=== PATIENT | female | born 1995 | race Caucasian/White ===

== ENCOUNTER → 2020-02-24 11:46 | Outpatient (BNVA) | payer OTHER, SELFPAY | PROVIDERS: Visit Provider Nurse Practitioner Family | DX: R06.02 Shortness of breath (principal); J06.9 Acute upper respiratory infection, unspecified; Z11.59 Encounter for screening for other viral diseases | CPT/HCPCS: 87635 ==

== ENCOUNTER 2020-12-28 14:55 | Emergency (ER) | payer MEDICAID, SELFPAY ==
[2020-12-28 15:03] VITALS: BP 108/69; PULSE 80; RESP 18; TEMP 37; O2SAT 97; BMI 24.0
--- NOTE | 2020-12-28 15:08 | ECG_ITS ---
[facility] Test Date: 2020-12-28 Pat Name: Elizabeth Jones Department: Room: Gender: Female Partner Marketing Intern: : 1995 Requested By: Rajani Dupont I Order Number: [id number] Yuri MD: Adams Alcaraz M.D. Measurements Intervals [place] Rate: 64 P: 42 DE: 138 QRS: 87 QRSD: 85 T: 19 QT: 384 QTc: 396 Interpretive Statements SINUS RHYTHM NONSPECIFIC T-WAVE ABNORMALITY No previous ECG available for comparison Electronically Signed On 12-29-2020 0:31:52 CDT by Adams Alcaraz M.D. [id number]
--- NOTE | 2020-12-28 15:09 | XRR_ITS ---
PROCEDURE INFORMATION: Exam: XR Chest Exam date and time: 12/28/2020 3:09 PM Age: 25 years old Clinical indication: Other: Hyperglycemia TECHNIQUE: Imaging protocol: XR of the chest. Views: 2 views. COMPARISON: No relevant prior studies available. FINDINGS: Lungs: There is a triangle shaped density in the medial aspect of the right lung base overlapping the right heart border. This may represent a focus of atelectasis. The lungs are otherwise clear. Pleural spaces: Unremarkable. No pleural effusion. No pneumothorax. Heart/Mediastinum: No cardiomegaly. Mediastinal contours are unremarkable. Bones/joints: Unremarkable. XR/XR chest 2V* 14081 IMPRESSION: 1. There is a triangle shaped density in the medial aspect of the right lung base overlapping the right heart border. This may represent a focus of atelectasis. 2. The lungs are otherwise clear.
[2020-12-28 15:18] LABS: Basophils # 0.1 10^3/uL (0.0-0.1); Basophils % 0.9 %; Eosinophils # 0.2 10^3/uL (0.0-0.8); Hematocrit 42.8 % (37.0-47.0); Hemoglobin 15.9 g/dL (11.5-15.3); Lymphocytes # 2.6 10^3/uL (0.8-4.8); Lymphocytes % 32.8 %; Mean Corpuscular HGB Conc 37.1 g/dL (30.0-36.0); Mean Corpuscular Hemoglobin 33.9 pg (28.0-34.0); Mean Corpuscular Volume 91.3 fL (81-99); Mean Platelet Volume 10.5 fL (7.4-10.4); Monocytes # 0.6 10^3/uL (0.2-0.9); Monocytes % 7.6 %; Neutrophils # 4.54 10^3/uL (1.8-7.7); Neutrophils % 56.5 %; Nucleated Red Blood Cells % 0 %; Platelet Count 235 10^3/cmm (130-400); Red Blood Count 4.69 10^6/uL (4.1-5.3); Red Cell Distribution Width 10.8 % (12.1-15.1)
[2020-12-28 15:21] VITALS: BP 119/78; RESP 18; O2SAT 98
[2020-12-28] MEDS: sodium chloride 0.9% 1,000 ML 999 ML IV (15:25)
[2020-12-28 15:31] LABS: Add Urine Microscopic? NO; Charge for UA Resulting for Rev
[2020-12-28 15:45] LABS: Alanine Aminotransferase 16 U/L (0-33); Albumin Level 4.5 g/dL (3.5-5.2); Alkaline Phosphatase 83 IU/L (35-105); Anion Gap 15.8 (5-19); Aspartate Amino Transferase 10 U/L (0-32); Blood Urea Nitrogen 5 mg/dL (6-20); C Reactive Protein 2.1 mg/L (0.0-4.9); Carbon Dioxide 25 mmol/L (22-29); Chloride 93 mmol/L (98-107); Globulin 2.1 g/dL (1.3-4.6); Glomerular Filtration Rate 192.9 mL/min (90-130); Lipase 17 U/L (13-60); Osmolality Calculated 293 mOsm/kg (285-295); Potassium 3.8 mmol/L (3.5-5.1); Sodium 130 mmol/L (136-145); Total Bilirubin 0.5 mg/dL (0.15-1.2); Total Protein 6.6 g/dL (6.6-8.7)
[2020-12-28 15:50] LABS: Bilirubin Urine Neg (Negative); Blood Urine Neg (Negative); Glucose Urine UA 4+ (Normal); HCG Qualitative Urine. Negative (Negative); Ketones Urine 1+ (Negative); Leukocyte Esterase Urine Negative (Negative); Nitrate Urine Negative (Negative); Protein Urine Neg (Negative); Urine Appearance Clear (CLEAR); Urine Color Straw (Yellow); Urobilinogen Urine Norm (Negative); pH Urine 8 (5-7)
[2020-12-28 15:51] LABS: Sulfosalicylic Acid Urine Negative (Negative)
[2020-12-28 15:55] LABS: Glucose 569 mg/dL (65-115)
--- NOTE | 2020-12-28 16:07 | PC.NURSE ---
fsbs 371 after completion of 1 L fluids
[2020-12-28 16:09] LABS: Glucose Point of Care 371 mg/dL (70-110)
[2020-12-28 16:29] LABS: Estmated Average Glucose 306; Hemoglobin A1C 12.3 % (4.0-6.0)
[2020-12-28 16:35] VITALS: BP 105/72; PULSE 68; RESP 18; O2SAT 97
--- NOTE | 2020-12-28 17:05 | ED_ITS ---
HPI - General Adult General: Chief complaint: General Medical Stated complaint: HYPERGLYCEMIA Time Seen by Provider: 12/28/20 14:56 Source: patient and EMS Mode of arrival: EMS Limitations: no limitations History of Present Illness: HPI narrative: Patient is a 25-year-old female with no significant past medical history other than gestational diabetes about 2 years ago. She presents to the emergency department with a several month (9) history of polyuria, polydipsia and a 40 pound weight loss. She started having dysuria a few days ago and so went to her primary care provider's office to be evaluated for these. When they checked her blood glucose was reading high on their meter and so she was sent to the emergency department to be evaluated. In the ambulance she received 1 L of fluids. She complains of a little bit of dizziness but otherwise no complaints. Onset (ago): month(s) (9) Associated symptoms: Deny chest pain, confusion, cough, diaphoresis, decreased appetite, dyspnea, fevers/chills, headache(s), malaise, nausea, rash, palpitations, seizures, short of breath, syncope, vomiting or weakness Treatments prior to arrival: other (IVF) Review of Systems General: Reports: 10 or more systems reviewed and unremarkable except in HPI and below Const: Denies: malaise or diaphoresis Card: Denies: chest pain, palpitations or syncope Resp: Denies: dyspnea GI: Denies: nausea or vomiting Skin/Breast: Denies: rash Neuro: Denies: headache(s) or confusion [facility] ED Female Reproductive History: Date of last menstrual period: 12/16/20 Physical Exam Const: COMMON NORMALS: no acute distress, average body habitus, patient oriented x3, no limitations, healthy appearing, alert and well nourished HENMT: COMMON NORMALS: normocephalic, atraumatic and moist oral mucous membranes HEAD & SCALP: normocephalic and atraumatic Eye: COMMON NORMALS: Equal, round and reactive pupils present, EOMs intact bilaterally, conjunctivae normal and no scleral icterus CONJUNCTIVA: Yes conjunctivae normal PUPIL: Yes Equal, round and reactive pupils present Neck/C-Spine: COMMON NORMALS: no meningeal signs and no JVD Resp: COMMON NORMALS: normal respiratory effort, No retractions, No use of accessory muscles, clear to auscultation bilaterally and percussion normal AUSCULTATION: clear to auscultation bilaterally PERCUSSION: percussion normal Cardio: COMMON NORMALS: no JVD, regular rate, regular rhythm, S1 normal heart sound present, S2 normal heart sound present, No gallops present (Cardio), No clicks present (Cardio), No murmurs present (Cardio), No rub (Cardio) and Peripheral pulses 2+ throughout RATE: regular rate RHYTHM: regular rhythm HEART SOUNDS: S1 normal heart sound present and S2 normal heart sound present PERIPHERAL PULSES: Peripheral pulses 2+ throughout GI: COMMON NORMALS: Normal to inspection, nondistended, normoactive bowel sounds present, Soft to palpation, non-tender, No hepatosplenomegaly present, no masses and no bruits PALPATION: Yes Soft to palpation and Yes No hepatosplenomegaly present Extremity: COMMON NORMALS: normal to inspection, full ROM, capillary refill normal, no calf tenderness and no pedal edema Neuro: COMMON NORMALS: patient oriented x3 SENSORIUM/ORIENTATION: Yes alert MENINGEAL SIGNS: Yes no meningeal signs Skin: COMMON NORMALS: no rashes or lesions noted, no wounds, turgor normal, no jaundice, no petechiae and no mottling GENERAL SKIN EXAM: no rashes or lesions noted and turgor normal Course Reevaluation(s): Reevaluation #1: Discussed her lab and imaging findings with her. Discussed that she does not have a urinary tract infection. However based on her blood glucose values today and her hemoglobin A1c she is diabetic. Explained that her A1c is high enough that she requires to be on insulin. A dvised her to discuss with her primary care provider so that they can start around the appropriate insulin if they both agree on days. I will however discharge her home on Metformin pending when she sees her primary care provider. She voiced understanding and is in agreement with the plan. Time: 17:06 Vital Signs: Vital signs: Vital Signs Temperature 98.6 F 12/28/20 15:03 Pulse Rate 69 12/28/20 17:15 Respiratory Rate 18 12/28/20 17:15 Blood Pressure 107/70 12/28/20 17:15 Pulse Oximetry 96 12/28/20 17:15 MDM - General Adult MDM Narrative: Medical decision making narrative: 25-year-old female with polyuria, polydipsia, unintentional weight loss. Evaluation in the emergency department shows she has diabetes mellitus and she has no prior diagnosis of this. A1c was significantly elevated and she will need to be on insulin, however I will start Metformin and she will follow up with her primary care provider. Medical Records: Attestation: I reviewed the patient's medical records. Lab Data: Attestation: I reviewed the patient's lab results. Labs: Lab Results 12/28/20 12/28/20 12/28/20 Range/Units 15:00 15:00 15:00 WBC 8.0 (4.0-10.0) 10^3/ uL RBC 4.69 (4.1-5.3) 10^6/u L Hgb 15.9 H (11.5-15.3) g/dL Hct 42.8 (37.0-47.0) % MCV 91.3 (81-99) fL MCH 33.9 (28.0-34.0) pg MCHC 37.1 H (30.0-36.0) g/dL RDW 10.8 L (12.1-15.1) % Plt Count 235 (130-400) 10^3/c mm MPV 10.5 H (7.4-10.4) fL Neut % (Auto) 56.5 % Lymph % (Auto) 32.8 % Gosper % (Auto) 7.6 % Eos % (Auto) 2.0 % Baso % (Auto) 0.9 % Neut # (Auto) 4.54 (1.8-7.7) 10^3/u L Lymph # (Auto) 2.6 (0.8-4.8) 10^3/u L Gosper # (Auto) 0.6 (0.2-0.9) 10^3/u L Eos # (Auto) 0.2 (0.0-0.8) 10^3/u L Baso # (Auto) 0.1 (0.0-0.1) 10^3/u L Nucleated RBC % (a uto) 0 % Nucleated RBCs # 0.0 /100WBC Sodium 130 L (136-145) mmol/L Potassium 3.8 (3.5-5.1) mmol/L Chloride 93 L (98-107) mmol/L Carbon Dioxide 25 (22-29) mmol/L Anion Gap 15.8 (5-19) BUN 5 L (6-20) mg/dL Creatinine 0.4 L (0.5-0.9) mg/dL GFR Calculation 192.9 H (90-130) mL/min Glucose 569 H* (65-115) mg/dL POC Glucose (70-110) mg/dL Estimat Average Gl ucose 306 Hemoglobin A1c 12.3 H (4.0-6.0) % Calculated Osmolal ity 293 (285-295) mOsm/k g Calcium 9.0 (8.5-10.5) mg/dL Total Bilirubin 0.5 (0.15-1.2) mg/dL AST 10 (0-32) U/L ALT 16 (0-33) U/L Alkaline Phosphata se 83 (35-105) IU/L C-Reactive Protein 2.1 (0.0-4.9) mg/L Total Protein 6.6 (6.6-8.7) g/dL Albumin 4.5 (3.5-5.2) g/dL Globulin 2.1 (1.3-4.6) g/dL Lipase 17 (13-60) U/L HCG, Qual (Negative) Urine Color (Yellow) Urine Appearance (CLEAR) Urine pH (5-7) Ur Specific Gravit y (1.005-1.030) Urine Protein (Negative) Urine Glucose (UA) (Normal) Urine Ketones (Negative) Urine Blood (Negative) Urine Nitrate (Negative) Urine Bilirubin (Negative) Prot Sulfosalicyli c Acd (Negative) Urine Urobilinogen (Negative) mg/dL Ur Leukocyte Maricruz ase (Negative) 12/28/20 12/28/20 12/28/20 Range/Units 15:15 15:15 16:06 WBC (4.0-10.0) 10^3/ uL RBC (4.1-5.3) 10^6/u L Hgb (11.5-15.3) g/dL Hct (37.0-47.0) % MCV (81-99) fL MCH (28.0-34.0) pg MCHC (30.0-36.0) g/dL RDW (12.1-15.1) % Plt Count (130-400) 10^3/c mm MPV (7.4-10.4) fL Neut % (Auto) % Lymph % (Auto) % Gosper % (Auto) % Eos % (Auto) % Baso % (Auto) % Neut # (Auto) (1.8-7.7) 10^3/u L Lymph # (Auto) (0.8-4.8) 10^3/u L Gosper # (Auto) (0.2-0.9) 10^3/u L Eos # (Auto) (0.0-0.8) 10^3/u L Baso # (Auto) (0.0-0.1) 10^3/u L Nucleated RBC % (a uto) % Nucleated RBCs # /100WBC Sodium (136-145) mmol/L Potassium (3.5-5.1) mmol/L Chloride (98-107) mmol/L Carbon Dioxide (22-29) mmol/L Anion Gap (5-19) BUN (6-20) mg/dL Creatinine (0.5-0.9) mg/dL GFR Calculation (90-130) mL/min Glucose (65-115) mg/dL POC Glucose 371 H (70-110) mg/dL Estimat Average Gl ucose Hemoglobin A1c (4.0-6.0) % Calculated Osmolal ity (285-295) mOsm/k g Calcium (8.5-10.5) mg/dL Total Bilirubin (0.15-1.2) mg/dL AST (0-32) U/L ALT (0-33) U/L Alkaline Phosphata se (35-105) IU/L C-Reactive Protein (0.0-4.9) mg/L Total Protein (6.6-8.7) g/dL Albumin (3.5-5.2) g/dL Globulin (1.3-4.6) g/dL Lipase (13-60) U/L HCG, Qual Negative (Negative) Urine Color Straw (Yellow) Urine Appearance Clear (CLEAR) Urine pH 8 H (5-7) Ur Specific Gravit y 1.010 (1.005-1.030) Urine Protein Neg (Negative) Urine Glucose (UA) 4+ H (Normal) Urine Ketones 1+ H (Negative) Urine Blood Neg (Negative) Urine Nitrate Negative (Negative) Urine Bilirubin Neg (Negative) Prot Sulfosalicyli c Acd Negative (Negative) Urine Urobilinogen Norm (Negative) mg/dL Ur Leukocyte Maricruz ase Negative (Negative) Imaging Data^: CXR: Attestation: I personally reviewed and interpreted this imaging study as follows: Radiologist's impression: Kyler [id number] [facility] [place]ry[place], [place] [address]ZDxi ReportSigned Patient: Blaze Jones #: [id number]: 1995Acct#:[id number]/Sex: / FADM Date: 12/28/20Loc: ERRoom/Bed:Attending Dr: Ordering Provider/Ordering MD: Rajani Dupont [place] [facility] [place] Service: 12/28/20 Procedure(s): XR chest 2V* 71220 Accession Number(s): [id number] Report Number: [id number] PROCEDURE INFORMATION: Exam: XR Chest Exam date and time: 12/28/2020 3:09 PM Age: 25 years old Clinical indication: Other: Hyperglycemia TECHNIQUE: Imaging protocol: XR of the chest. Views: 2 views. COMPARISON: No relevant prior studies available. FINDINGS: Lungs: There is a triangle shaped density in the medial aspect of the right lung base overlapping the right heart border. This may represent a focus of atelectasis. The lungs are otherwise clear. Pleural spaces: Unremarkable. No pleural effusion. No pneumothorax. Heart/Mediastinum: No cardiomegaly. Mediastinal contours are unremarkable. Bones/joints: Unremarkable. XR/XR chest 2V* [id number] IMPRESSION: 1. There is a triangle shaped density in the medial aspect of the right lung base overlapping the right heart border. This may represent a focus of atelectasis. 2. The lungs are otherwise clear. Dictated By:Salvador Teran MDSigned By:Salvador Teran MDSigned Date/Time:12/28/201618DD/ 161 EKG Data^: EKG 1: Attestation: I personally reviewed and interpreted this EKG as follows: EKG interpretation date: 12/28/20 EKG interpretation time: 15:22 Prior EKG tracings: not available for review Interpretation: Sinus rhythm. Heart rate 64 bpm. Normal axis. No ST changes. Computer generated interpretation: Chest X-Ray 12/28/20 15:09 IMPRESSION: 1. There is a triangle shaped density in the medial aspect of the right lung base overlapping the right heart border. This may represent a focus of atelectasis. 2. The lungs are otherwise clear. Discharge Plan Discharge Patient Disposition: Home Clinical Impression: Diabetes mellitus, new onset Condition: Stable Prescriptions: New metformin 500 mg tablet 500 mg PO BID Qty: 60 RF: 0 Discharge Orders: Discharge ED (Routine); Ordered 12/28/20 Ordered By: Rajani Dupont Discharge Diet: Diabetic Discharge Activity: Resume usual activity Patient Instructions: Diabetes and Diet, Diabetes Mellitus Type 2 in Adults (ED) Activity Restrictions/Additional Instructions: Your lab test today showed that you are diabetic. Your hemoglobin A1c is 12.3% which is very high and at this level you will likely require insulin to bring down your A1c. Discussed with your primary care provider on the next steps and what medications you need to be started on. Meanwhile I will discharge her home with a prescription for Metformin, take 1 tablet twice a day. You need to consume a low calorie/diabetic diet from now on. Return for any new or worsening symptoms. Drink plenty of water to keep well-hydrated. Coding Level of Care Code ED Marine Machinist for Francisco Javier Burgos
[2020-12-28 17:15] VITALS: BP 107/70; PULSE 69; RESP 18; O2SAT 96
== END 2020-12-28 17:20 | disposition home or self-care (01) ==
PROVIDERS: Emergency Provider Family Medicine
DX: E11.9 Type 2 diabetes mellitus without complications (principal)
CPT/HCPCS: 36416; 71046; 80053; 81000; 81003; 81025; 82962; 83036; 83690; 85025; 86140; 93005; 96360; 99284; J7030

== ENCOUNTER → 2021-01-03 08:53 | Outpatient (BNVA) | payer MEDICAID, SELFPAY | PROVIDERS: PCP Nurse Practitioner Family; Visit Provider Nurse Practitioner Family | DX: E11.9 Type 2 diabetes mellitus without complications (principal); R53.83 Other fatigue; E55.9 Vitamin D deficiency, unspecified; Z13.6 Encounter for screening for cardiovascular disorders; H60.90 Unspecified otitis externa, unspecified ear; Z79.899 Other long term (current) drug therapy | CPT/HCPCS: 80061; 82306; 84439; 84443; 84681 ==

== ENCOUNTER → 2021-01-12 00:01 | Outpatient (BNVA) | payer MEDICAID, SELFPAY | PROVIDERS: PCP Nurse Practitioner Family; Visit Provider Nurse Practitioner Family | DX: E11.9 Type 2 diabetes mellitus without complications (principal); L40.9 Psoriasis, unspecified; N39.0 Urinary tract infection, site not specified; H60.551 Acute reactive otitis externa, right ear | CPT/HCPCS: 80053; 81003 ==

== ENCOUNTER → 2021-04-04 08:03 | Outpatient (BNVA) | payer MEDICAID, SELFPAY | PROVIDERS: PCP Nurse Practitioner Family; Referring Provider Nurse Practitioner Family; Visit Provider Internal Medicine | DX: E11.9 Type 2 diabetes mellitus without complications (principal); R53.83 Other fatigue; F17.210 Nicotine dependence, cigarettes, uncomplicated | CPT/HCPCS: 99204 ==

== ENCOUNTER 2021-04-04 09:11 | Outpatient (CLI) | payer MEDICAID, SELFPAY ==
[2021-04-04 09:51] LABS: Estmated Average Glucose 154
== END 2021-04-04 09:12 | disposition home or self-care (01) ==
PROVIDERS: PCP Nurse Practitioner Family; Visit Provider Internal Medicine
DX: E11.9 Type 2 diabetes mellitus without complications (principal)
CPT/HCPCS: 36415; 83036

== ENCOUNTER 2021-04-18 10:12 | Outpatient (CLI) | payer MEDICAID, SELFPAY | END 2021-04-18 10:13 | disposition home or self-care (01) | PROVIDERS: PCP Nurse Practitioner Family; Visit Provider Internal Medicine | DX: E11.9 Type 2 diabetes mellitus without complications (principal) | CPT/HCPCS: 83519; 83525; 86337 ==

== ENCOUNTER → 2021-07-28 08:58 | Outpatient (BNVA) | payer BC, MEDICAID, SELFPAY | PROVIDERS: PCP Nurse Practitioner Family; Visit Provider Internal Medicine | DX: E10.65 Type 1 diabetes mellitus with hyperglycemia (principal); E10.649 Type 1 diabetes mellitus with hypoglycemia without coma; E78.2 Mixed hyperlipidemia; E55.9 Vitamin D deficiency, unspecified; R53.83 Other fatigue; E65 Localized adiposity; Z79.4 Long term (current) use of insulin; F17.210 Nicotine dependence, cigarettes, uncomplicated | CPT/HCPCS: 99214 ==

== ENCOUNTER 2021-07-28 10:43 | Outpatient (CLI) | payer BC, MEDICAID, SELFPAY ==
[2021-07-28 11:28] LABS: Alanine Aminotransferase 10 U/L (0-33); Albumin Level 4.7 g/dL (3.5-5.2); Alkaline Phosphatase 53 IU/L (35-105); Anion Gap 13.3 (5-19); Aspartate Amino Transferase 11 U/L (0-32); Blood Urea Nitrogen 11 mg/dL (6-20); Calcium 9.8 mg/dL (8.5-10.5); Carbon Dioxide 24 mmol/L (22-29); Chloride 105 mmol/L (98-107); Chol HDL Ratio 3.46 mg/dL (0.0-4.40); Cholesterol 128 mg/dL (0-200); Globulin 2.3 g/dL (1.3-4.6); Glomerular Filtration Rate 191.5 mL/min (90-130); Glucose 175 mg/dL (65-115); HDL Cholesterol 37 mg/dL (60-100); LDL Cholesterol Calculated 84 mg/dL (50-129); LDL HDL Ratio 2.27 RATIO (0.00-3.22); Osmolality Calculated 290 mOsm/kg (285-295); Potassium 4.3 mmol/L (3.5-5.1); Sodium 138 mmol/L (136-145); Total Bilirubin 0.5 mg/dL (0.15-1.2); Triglycerides 33 mg/dL (0-150)
[2021-07-28 11:58] LABS: 25 Hydroxy Vitamin D > 100 ng/mL (30-100)
[2021-07-28 12:04] LABS: Estmated Average Glucose 197; Hemoglobin A1C 8.5 % (4.0-6.0)
== END 2021-07-28 10:44 | disposition home or self-care (01) ==
PROVIDERS: PCP Nurse Practitioner Family; Visit Provider Internal Medicine
DX: E10.65 Type 1 diabetes mellitus with hyperglycemia (principal); E78.2 Mixed hyperlipidemia; E55.9 Vitamin D deficiency, unspecified
CPT/HCPCS: 80053; 80061; 82306; 83036

== ENCOUNTER → 2021-09-08 10:07 | Outpatient (BNVA) | payer BC, SELFPAY | PROVIDERS: PCP Nurse Practitioner Family; Visit Provider Internal Medicine | DX: E10.649 Type 1 diabetes mellitus with hypoglycemia without coma (principal); F41.9 Anxiety disorder, unspecified; F32.A Depression, unspecified; E55.9 Vitamin D deficiency, unspecified; R53.83 Other fatigue; E65 Localized adiposity; F90.9 Attention-deficit hyperactivity disorder, unspecified type; F17.210 Nicotine dependence, cigarettes, uncomplicated; Z79.4 Long term (current) use of insulin | CPT/HCPCS: 99214 ==

== ENCOUNTER → 2021-10-21 08:19 | Outpatient (BNVA) | payer BC, SELFPAY | PROVIDERS: PCP Nurse Practitioner Family; Visit Provider Psychiatry & Neurology Psychiatry | DX: F60.3 Borderline personality disorder (principal); F33.2 Major depressive disorder, recurrent severe without psychotic features; F41.1 Generalized anxiety disorder; F12.20 Cannabis dependence, uncomplicated; F10.21 Alcohol dependence, in remission; F17.200 Nicotine dependence, unspecified, uncomplicated | CPT/HCPCS: 99204 ==

== ENCOUNTER → 2022-01-05 08:23 | Outpatient (BNVA) | payer BC, SELFPAY | PROVIDERS: PCP Nurse Practitioner Family; Visit Provider Nurse Practitioner | DX: Z20.822 Contact with and (suspected) exposure to COVID-19 (principal) | CPT/HCPCS: 87635 ==

== ENCOUNTER → 2022-01-30 09:43 | Outpatient (BNVA) | payer BC, SELFPAY | PROVIDERS: PCP Nurse Practitioner Family; Visit Provider Internal Medicine | DX: F90.9 Attention-deficit hyperactivity disorder, unspecified type (principal); F41.9 Anxiety disorder, unspecified; F32.A Depression, unspecified; Z79.4 Long term (current) use of insulin; F17.290 Nicotine dependence, other tobacco product, uncomplicated; E10.649 Type 1 diabetes mellitus with hypoglycemia without coma; E55.9 Vitamin D deficiency, unspecified; R53.83 Other fatigue; E65 Localized adiposity | CPT/HCPCS: 99214 ==

== ENCOUNTER → 2022-02-13 08:58 | Outpatient (BNVA) | payer BC, SELFPAY | PROVIDERS: PCP Nurse Practitioner Family; Visit Provider Internal Medicine | DX: E10.65 Type 1 diabetes mellitus with hyperglycemia (principal); E55.9 Vitamin D deficiency, unspecified; R53.83 Other fatigue; E65 Localized adiposity; M25.50 Pain in unspecified joint; R19.7 Diarrhea, unspecified; F41.9 Anxiety disorder, unspecified | CPT/HCPCS: 99214 ==

== ENCOUNTER → 2022-04-06 10:15 | Outpatient (BNVA) | payer BC, SELFPAY | PROVIDERS: PCP Nurse Practitioner; Visit Provider Nurse Practitioner | DX: R50.9 Fever, unspecified (principal) | CPT/HCPCS: 85025; 86308; 87070; 87400 ==

== ENCOUNTER → 2022-07-03 09:55 | Outpatient (BNVA) | payer BC, SELFPAY | PROVIDERS: PCP Nurse Practitioner; Visit Provider Nurse Practitioner | DX: Z20.822 Contact with and (suspected) exposure to COVID-19 (principal); R05.9 Cough, unspecified | CPT/HCPCS: 87400; 87426 ==

== ENCOUNTER → 2022-10-18 12:32 | Outpatient (BNVA) | payer BC, SELFPAY | PROVIDERS: PCP Nurse Practitioner; Visit Provider Internal Medicine | DX: E10.65 Type 1 diabetes mellitus with hyperglycemia (principal); E55.9 Vitamin D deficiency, unspecified; R53.83 Other fatigue; E65 Localized adiposity; M25.50 Pain in unspecified joint; R19.7 Diarrhea, unspecified; L68.0 Hirsutism; L70.9 Acne, unspecified | CPT/HCPCS: 36415; 80053; 80061; 82044; 82533; 82627; 83036; 84403; 84439; 84443; 84480 ==

== ENCOUNTER → 2023-09-21 09:25 | Outpatient (BNVA) | payer BC, MEDICAID, SELFPAY | PROVIDERS: PCP Nurse Practitioner; Visit Provider Nurse Practitioner Family | DX: R50.9 Fever, unspecified (principal); R09.89 Other specified symptoms and signs involving the circulatory and respiratory systems; R10.9 Unspecified abdominal pain; M54.9 Dorsalgia, unspecified; J40 Bronchitis, not specified as acute or chronic; R06.02 Shortness of breath | CPT/HCPCS: 71046 ==

== ENCOUNTER → 2024-09-09 15:35 | Outpatient (BNVA) | payer BC, MEDICAID, SELFPAY | PROVIDERS: PCP Nurse Practitioner Family; Visit Provider Nurse Practitioner Family | DX: E55.9 Vitamin D deficiency, unspecified (principal); E10.649 Type 1 diabetes mellitus with hypoglycemia without coma; R53.83 Other fatigue; D64.9 Anemia, unspecified | CPT/HCPCS: 80053; 80061; 81003; 82306; 82607; 83036; 83550; 84439; 84443; 84481; 85025 ==